=== PATIENT | male | born 1960 | race Caucasian/White ===

== ENCOUNTER 2018-03-10 01:13 | Inpatient (IN) | payer MEDICARE, MEDICAID ==
[2018-03-10] VITALS (10 sets, daily range): BP systolic 93–113; BP diastolic 51–70
[~2018-03-10] VITALS: Ht 177.8 cm; Wt 81.8 kg
[2018-03-10] MEDS ORDERED: normal saline 1000ML IV soln IVB ONE ×2 (01:15)
[2018-03-10 01:26] LABS: ISTAT CREATININE 1.5 mg/dL (0.8-1.3); ISTAT HGB 12.9 g/dl (14.0-18.0); ISTAT IONIZED CALCIUM 1.21 mmol/L (1.03-1.32); ISTAT K 4.5 mmol/L (3.5-5.1); POC BUN/CREATININE RATIO 33.3 (5.4-32.0)
[2018-03-10 01:28] LABS: BASOPHILS # (AUTO) 0.2 X10'3 (0-0.2); BASOPHILS % (AUTO) 1.4 % (0-1); EOSINOPHILS % (AUTO) 0.4 % (0-6); HEMATOCRIT 37.3 % (42.0-52.0); HEMOGLOBIN 12.4 g/dl (14.0-17.9); LYMPHOCYTES # (AUTO) 1.7 X10'3 (1.1-4.8); MEAN CORPUSCULAR HEMOGLOBIN 30.3 PG (27.0-31.0); MEAN CORPUSCULAR HGB CONC 33.2 % (33.0-36.5); MEAN CORPUSCULAR VOLUME 91.4 FL (78-98); MEAN PLATELET VOLUME 9.8 FL (7.4-10.4); MONOCYTES # (AUTO) 0.4 X10'3 (0-0.9); MONOCYTES % (AUTO) 3.3 % (2-12); NEUTROPHILS # (AUTO) 8.5 X10'3 (1.8-7.7); NEUTROPHILS % (AUTO) 78.9 % (42-75); PLATELET COUNT 371 X10'3 (140-440); RED BLOOD COUNT 4.08 X10'6 (4.70-6.10); RED CELL DISTRIBUTION WIDTH 13.2 % (11.5-14.5); WHITE BLOOD COUNT 10.8 X10'3 (4.5-11.0)
[2018-03-10] MEDS ORDERED: tranexamic acid inj. 810 MG in normal saline 100ml IV soln 91.9 ML IV ONE (01:45)
[2018-03-10 01:58] LABS: ALANINE AMINOTRANSFERASE 30 U/L (12-78); ALBUMIN 3.6 G/DL (3.4-5.0); ALBUMIN/GLOBULIN RATIO 0.8 (1.1-1.5); ALKALINE PHOSPHATASE 83 IU/L (46-116); ANION GAP 15 (8-16); ASPARTATE AMINO TRANSFERASE 18 U/L (10-37); BILIRUBIN,TOTAL 0.6 MG/DL (0.1-1.0); BLOOD UREA NITROGEN 62 MG/DL (7-18); BUN/CREATININE RATIO 32.8 (5.4-32.0); CALCIUM 9.8 MG/DL (8.5-10.1); CHLORIDE 100 MMOL/L (99-107); CREATININE 1.89 MG/DL (0.60-1.10); GLUCOSE 357 MG/DL (70-104); MAGNESIUM 1.9 MG/DL (1.5-2.4); POTASSIUM 4.5 MMOL/L (3.5-5.1); SODIUM 139 MMOL/L (135-145); TOTAL CARBON DIOXIDE 24.4 MMOL/L (24-32); TOTAL PROTEIN 7.9 G/DL (6.4-8.2); eGFR 37 ML/MIN
[2018-03-10 02:01] LABS: PROTHROMBIN TIME 10.1 SECONDS (9.0-12.0)
[2018-03-10 02:02] LABS: PARTIAL THROMBOPLASTIN TIME 22 SECONDS (22-32)
[2018-03-10 03:21] LABS: TOTAL CELLS COUNTED 100
[2018-03-10 03:22] LABS: PLATELET ESTIMATE NORMAL
[2018-03-10 03:34] LABS: HEMATOCRIT 32.7 % (42.0-52.0); MEAN CORPUSCULAR HEMOGLOBIN 30.2 PG (27.0-31.0); MEAN CORPUSCULAR HGB CONC 33.5 % (33.0-36.5); MEAN CORPUSCULAR VOLUME 89.9 FL (78-98); MEAN PLATELET VOLUME 9.7 FL (7.4-10.4); PLATELET COUNT 311 X10'3 (140-440); RED BLOOD COUNT 3.64 X10'6 (4.70-6.10); WHITE BLOOD COUNT 6.1 X10'3 (4.5-11.0)
[2018-03-10] MEDS ORDERED: INSU100I29 SQ (04:04)
[2018-03-10] MEDS ORDERED: ATR0.5NEB IH (04:04)
[2018-03-10] MEDS ORDERED: INSU100C4 SQ (04:04)
[2018-03-10] MEDS ORDERED: INSU100I29 (04:04)
[2018-03-10] MEDS ORDERED: PARO-62 PO (04:04)
[2018-03-10] MEDS ORDERED: GLUC1KIT IM (04:04)
[2018-03-10] MEDS ORDERED: METF500T PO (04:04)
[2018-03-10] MEDS ORDERED: FURO-150 PO (04:04)
[2018-03-10] MEDS ORDERED: LOSA25TA96 PO (04:04)
[2018-03-10] MEDS ORDERED: SIMV10TA2 PO (04:04)
[2018-03-10] MEDS ORDERED: CETI10TA15 PO (04:04)
[2018-03-10] MEDS ORDERED: MULT-38 PO (04:04)
[2018-03-10] MEDS ORDERED: diphenhydrAMINE 25mg capsule PO PRN (04:05)
[2018-03-10] MEDS ORDERED: bisacodyl 10mg suppository rectal RC PRN (04:05)
[2018-03-10] MEDS ORDERED: acetaminophen 650mg rectal suppository RC PRN (04:05)
[2018-03-10] MEDS ORDERED: mag hydrox/Alum hydrox/simeth 30ml oral suspension PO PRN (04:05)
[2018-03-10] MEDS ORDERED: diphenhydrAMINE 50 mg/ml inj IV PRN (04:05)
[2018-03-10] MEDS ORDERED: ondansetron/PF 4mg/2ml inj IV PRN (04:05)
[2018-03-10] MEDS ORDERED: magnesium hydroxide 30ml (MOM) UD suspension PO PRN (04:05)
[2018-03-10] MEDS ORDERED: HYDROmorphone 1 mg/ml syringe IV PRN (04:05)
[2018-03-10] MEDS ORDERED: acetaminophen 325mg tablet PO PRN (04:05)
[2018-03-10] MEDS ORDERED: morphine 2 MG/ML inj. syringe IV PRN (04:05)
[2018-03-10] MEDS ORDERED: HYDROcodone/acetaminophen 5mg/325mg tablet PO PRN (04:05)
[2018-03-10] MEDS ORDERED: ibuprofen tablet 400 MG TABLET PO ONE (04:10)
[2018-03-10] MEDS ORDERED: MESSAGE TO PHARMACY PO ONE (04:15)
[2018-03-10] MEDS ORDERED: glucagon, human recombinant 1mg kit SUBCUT PRN (04:15)
[2018-03-10] MEDS ORDERED: dextrose 50%-water 50ml dispensing syringe IV PRN (04:15)
[2018-03-10] MEDS ORDERED: dextrose ORAL solution 15 GM/59 ML bottle PO PRN ×2 (04:15)
[2018-03-10 05:10] LABS: ABG BASE EXCESS -1.4 mmol/L (-2.0-3.0); ABG HCO3 23.1 mmol/L (22.0-26.0); ABG OXYGEN SATURATION 98.5 % (95-98); ABG PCO2 (T) 36.9 mmHg (35.0-48.0); ABG PH (T) 7.412 (7.350-7.450); ABG PO2 (T) 114.6 mmHg (83-108); FCOHb 0.2 % (0.5-1.5); FMetHb 0.3 % (0.3-1.12); MINUTE VOLUME 20 L/min; PATIENT TEMPERATURE 36.4; RESPIRATORY RATE 14 b/min; RESPIRATORY RATE (OBSERVED) 30 b/min; TOTAL HEMOGLOBIN 11.7 G/dl (14.0-18.0)
[2018-03-10] MEDS: normal saline 1000ml 1,000 ML IV SCH ×2 (05:30→15:04)
[2018-03-10 05:59] LABS: LIPASE 120 U/L (73-393)
[2018-03-10 06:13] LABS: OSMOLALITY 331 MOSM/K (280-300)
[2018-03-10] MEDS ORDERED: mineral oil 133ml enema RC PRN (06:45)
[2018-03-10] MEDS ORDERED: sodium polystyrene sulfonate ENEMA 30gm/120ml RC ONE (06:45)
[2018-03-10 07:17] LABS: HEMOGLOBIN A1C 10.5 % (4.5-6.2)
[2018-03-10] MEDS: docusate sod 100mg capsule PO SCH ×2 (08:00→20:00)
[2018-03-10] MEDS: pantoprazole 40 MG vial IV SCH ×2 (08:01→21:32)
[2018-03-10] MEDS: clindamycin 600mg/D5W 50ml 50 ML IV SCH ×2 (08:02→15:03)
[2018-03-10] MEDS: levoFLOXACIN-Levaquin 500mg/D5 100 ML IV SCH (08:03)
[2018-03-10] MEDS ORDERED: albuterol 2.5 MG/3 ML nebule NEB PRN (20:30)
[2018-03-10] MEDS ORDERED: temazepam 15mg capsule PO PRN (21:00)
[2018-03-10] MEDS ORDERED: dextrose 5%-normal saline 1,000 ML IV SCH (21:30)
[2018-03-10] MEDS: dextrose 50%-water 50ml dispensing syringe IV PRN (21:32)
[2018-03-11 02:45] VITALS: BP 110/59
[2018-03-11 06:49] LABS: BASOPHILS % (AUTO) 0 % (0-1); EOSINOPHILS % (AUTO) 0.1 % (0-6); HEMATOCRIT 29.3 % (42.0-52.0); HEMOGLOBIN 9.6 g/dl (14.0-17.9); LYMPHOCYTES # (AUTO) 1.2 X10'3 (1.1-4.8); LYMPHOCYTES % (AUTO) 11.3 % (21-51); MEAN CORPUSCULAR HEMOGLOBIN 29.9 PG (27.0-31.0); MEAN CORPUSCULAR HGB CONC 32.9 % (33.0-36.5); MEAN CORPUSCULAR VOLUME 90.8 FL (78-98); MEAN PLATELET VOLUME 9.4 FL (7.4-10.4); MONOCYTES # (AUTO) 0.5 X10'3 (0-0.9); MONOCYTES % (AUTO) 4.3 % (2-12); NEUTROPHILS # (AUTO) 8.8 X10'3 (1.8-7.7); NEUTROPHILS % (AUTO) 84.3 % (42-75); PLATELET COUNT 245 X10'3 (140-440); RED BLOOD COUNT 3.22 X10'6 (4.70-6.10); RED CELL DISTRIBUTION WIDTH 13.9 % (11.5-14.5); WHITE BLOOD COUNT 10.4 X10'3 (4.5-11.0)
[2018-03-11 07:14] LABS: ALANINE AMINOTRANSFERASE 25 U/L (12-78); ALBUMIN 2.5 G/DL (3.4-5.0); ALBUMIN/GLOBULIN RATIO 0.7 (1.1-1.5); ALKALINE PHOSPHATASE 57 IU/L (46-116); ANION GAP 8 (8-16); ASPARTATE AMINO TRANSFERASE 38 U/L (10-37); BILIRUBIN,TOTAL 0.4 MG/DL (0.1-1.0); BLOOD UREA NITROGEN 49 MG/DL (7-18); BUN/CREATININE RATIO 36.6 (5.4-32.0); CALCIUM 8.8 MG/DL (8.5-10.1); CHLORIDE 114 MMOL/L (99-107); CHOL/HDL RATIO 2.7 (0.00-4.99); CHOLESTEROL 73 MG/DL (0-200); CREATININE 1.34 MG/DL (0.60-1.10); GLUCOSE 232 MG/DL (70-104); HDL CHOLESTEROL 27 MG/DL (35-60); LDL CHOLESTEROL 27 MG/DL (50-100); POTASSIUM 3.3 MMOL/L (3.5-5.1); SODIUM 150 MMOL/L (135-145); TOTAL CARBON DIOXIDE 28.4 MMOL/L (24-32); TOTAL PROTEIN 6.2 G/DL (6.4-8.2); TRIGLYCERIDES 85 MG/DL (20-135); eGFR 55 ML/MIN
[2018-03-11] MEDS: clindamycin 600mg/D5W 50ml 50 ML IV SCH ×3 (08:00→16:08)
[2018-03-11] MEDS ORDERED: dextrose 5%-water 1,000 ML IV SCH (09:10)
[2018-03-11] MEDS: levoFLOXACIN-Levaquin 500mg/D5 100 ML IV SCH (10:21)
[2018-03-11] MEDS: docusate sod 100mg capsule PO SCH ×2 (10:22→20:00)
[2018-03-11] MEDS: pantoprazole 40 MG vial IV SCH ×2 (10:22→20:26)
[2018-03-11] MEDS: insulin Lispro (HumaLOG) vial - multi-dose SQ SCH (12:30)
[2018-03-11 15:07] LABS: ALBUMIN 2.5 G/DL (3.4-5.0); ANION GAP 9 (8-16); BLOOD UREA NITROGEN 41 MG/DL (7-18); BUN/CREATININE RATIO 33.9 (5.4-32.0); CALCIUM 9.2 MG/DL (8.5-10.1); CHLORIDE 116 MMOL/L (99-107); CREATININE 1.21 MG/DL (0.60-1.10); GLUCOSE 155 MG/DL (70-104); POTASSIUM 3.1 MMOL/L (3.5-5.1); SODIUM 153 MMOL/L (135-145); TOTAL CARBON DIOXIDE 27.8 MMOL/L (24-32); eGFR 62 ML/MIN
[2018-03-11] MEDS ORDERED: potassium Cl 40MEQ/NS 500ml 500 ML IV PRN ×2 (15:35)
[2018-03-11] MEDS ORDERED: magnesium 4gm in 100ml NS 100 ML IV PRN (15:35)
[2018-03-11] MEDS ORDERED: potassium Cl 20 mEq SR tablet PO PRN ×2 (15:35)
[2018-03-11] MEDS ORDERED: magnesium 1gm/100ml D5W IVPB 100 ML IV PRN (15:35)
[2018-03-11] MEDS ORDERED: magnesium Cl slow-release 64mg tablet PO PRN (15:35)
[2018-03-11 15:56] LABS: MAGNESIUM 2.1 MG/DL (1.5-2.4)
[2018-03-11] MEDS: lactulose 20gm/30ml cup NG SCH (16:08)
[2018-03-11 18:33] LABS: POTASSIUM 3.1 MMOL/L (3.5-5.1)
[2018-03-11 19:20] VITALS: BP 124/79
[2018-03-11] MEDS: dextrose 5%-water 1,000 ML IV SCH (20:15)
[2018-03-12] VITALS: BP 124/75
[2018-03-12] MEDS: lactulose 20gm/30ml cup NG SCH ×2 (00:23→07:36)
[2018-03-12] MEDS: clindamycin 600mg/D5W 50ml 50 ML IV SCH ×3 (00:23→16:52)
[2018-03-12] MEDS: insulin Lispro (HumaLOG) vial - multi-dose SQ SCH ×4 (01:23→21:52)
[2018-03-12] MEDS: dextrose 5%-water 1,000 ML IV SCH ×4 (04:40→23:16)
[2018-03-12 05:42] LABS: BASOPHILS % (AUTO) 0.2 % (0-1); EOSINOPHILS % (AUTO) 0.4 % (0-6); HEMATOCRIT 30.8 % (42.0-52.0); HEMOGLOBIN 10.2 g/dl (14.0-17.9); LYMPHOCYTES # (AUTO) 1.5 X10'3 (1.1-4.8); LYMPHOCYTES % (AUTO) 15.4 % (21-51); MEAN CORPUSCULAR HEMOGLOBIN 30.3 PG (27.0-31.0); MEAN CORPUSCULAR HGB CONC 33.1 % (33.0-36.5); MEAN CORPUSCULAR VOLUME 91.5 FL (78-98); MEAN PLATELET VOLUME 9.6 FL (7.4-10.4); MONOCYTES # (AUTO) 0.6 X10'3 (0-0.9); MONOCYTES % (AUTO) 6.2 % (2-12); NEUTROPHILS # (AUTO) 7.7 X10'3 (1.8-7.7); NEUTROPHILS % (AUTO) 77.8 % (42-75); PLATELET COUNT 267 X10'3 (140-440); RED BLOOD COUNT 3.37 X10'6 (4.70-6.10); RED CELL DISTRIBUTION WIDTH 14.2 % (11.5-14.5); WHITE BLOOD COUNT 9.9 X10'3 (4.5-11.0)
[2018-03-12 06:00] LABS: ALANINE AMINOTRANSFERASE 29 U/L (12-78); ALBUMIN 2.4 G/DL (3.4-5.0); ALBUMIN/GLOBULIN RATIO 0.6 (1.1-1.5); ALKALINE PHOSPHATASE 69 IU/L (46-116); ANION GAP 10 (8-16); ASPARTATE AMINO TRANSFERASE 39 U/L (10-37); BILIRUBIN,TOTAL 0.5 MG/DL (0.1-1.0); BLOOD UREA NITROGEN 31 MG/DL (7-18); BUN/CREATININE RATIO 25.2 (5.4-32.0); CALCIUM 8.8 MG/DL (8.5-10.1); CHLORIDE 115 MMOL/L (99-107); CREATININE 1.23 MG/DL (0.60-1.10); GLUCOSE 338 MG/DL (70-104); POTASSIUM 3.7 MMOL/L (3.5-5.1); SODIUM 150 MMOL/L (135-145); TOTAL CARBON DIOXIDE 25.3 MMOL/L (24-32); TOTAL PROTEIN 6.4 G/DL (6.4-8.2); eGFR 61 ML/MIN
[2018-03-12] MEDS: pantoprazole 40 MG vial IV SCH ×2 (07:36→21:39)
[2018-03-12] MEDS: docusate sod 100mg capsule PO SCH ×2 (07:48→20:00)
[2018-03-12] MEDS: levoFLOXACIN-Levaquin 500mg/D5 100 ML IV SCH (09:05)
[2018-03-12 09:46] VITALS: BP 119/62
[2018-03-12] MEDS: mineral oil 133ml enema RC SCH ×3 (12:49→21:43)
[2018-03-12 14:28] VITALS: BP 120/70
[2018-03-12 20:00] VITALS: BP 113/73
[2018-03-13] VITALS: BP 109/67
[2018-03-13] MEDS: clindamycin 600mg/D5W 50ml 50 ML IV SCH ×3 (00:42→15:49)
[2018-03-13 06:04] LABS: BASOPHILS % (AUTO) 0.2 % (0-1); EOSINOPHILS # (AUTO) 0.3 X10'3 (0-0.9); EOSINOPHILS % (AUTO) 2.9 % (0-6); HEMATOCRIT 32.6 % (42.0-52.0); HEMOGLOBIN 10.8 g/dl (14.0-17.9); LYMPHOCYTES # (AUTO) 1.5 X10'3 (1.1-4.8); LYMPHOCYTES % (AUTO) 15.1 % (21-51); MEAN CORPUSCULAR HEMOGLOBIN 30.2 PG (27.0-31.0); MEAN CORPUSCULAR HGB CONC 33.1 % (33.0-36.5); MEAN CORPUSCULAR VOLUME 91.3 FL (78-98); MEAN PLATELET VOLUME 9.8 FL (7.4-10.4); MONOCYTES # (AUTO) 0.5 X10'3 (0-0.9); MONOCYTES % (AUTO) 5.2 % (2-12); NEUTROPHILS # (AUTO) 7.6 X10'3 (1.8-7.7); NEUTROPHILS % (AUTO) 76.6 % (42-75); PLATELET COUNT 260 X10'3 (140-440); RED BLOOD COUNT 3.57 X10'6 (4.70-6.10); RED CELL DISTRIBUTION WIDTH 13.8 % (11.5-14.5); WHITE BLOOD COUNT 9.9 X10'3 (4.5-11.0)
[2018-03-13 06:29] LABS: ALANINE AMINOTRANSFERASE 29 U/L (12-78); ALBUMIN 2.4 G/DL (3.4-5.0); ALBUMIN/GLOBULIN RATIO 0.6 (1.1-1.5); ALKALINE PHOSPHATASE 73 IU/L (46-116); ANION GAP 15 (8-16); ASPARTATE AMINO TRANSFERASE 27 U/L (10-37); BILIRUBIN,TOTAL 0.5 MG/DL (0.1-1.0); BLOOD UREA NITROGEN 24 MG/DL (7-18); BUN/CREATININE RATIO 19.8 (5.4-32.0); CALCIUM 8.4 MG/DL (8.5-10.1); CHLORIDE 108 MMOL/L (99-107); CREATININE 1.21 MG/DL (0.60-1.10); MAGNESIUM 1.8 MG/DL (1.5-2.4); POTASSIUM 3.8 MMOL/L (3.5-5.1); SODIUM 146 MMOL/L (135-145); TOTAL CARBON DIOXIDE 23.5 MMOL/L (24-32); TOTAL PROTEIN 6.3 G/DL (6.4-8.2); eGFR 62 ML/MIN
[2018-03-13 06:57] LABS: GLUCOSE 506 MG/DL (70-104)
[2018-03-13 07:28] VITALS: BP 109/71
[2018-03-13] MEDS: insulin Lispro (HumaLOG) vial - multi-dose SQ SCH ×2 (07:42→13:44)
[2018-03-13] MEDS: pantoprazole 40 MG vial IV SCH ×2 (07:43→22:13)
[2018-03-13] MEDS: docusate sod 100mg capsule PO SCH ×2 (08:00→22:16)
[2018-03-13] MEDS: levoFLOXACIN-Levaquin 500mg/D5 100 ML IV SCH (08:58)
[2018-03-13] MEDS: lactulose 20gm/30ml cup PO SCH ×3 (10:30→22:15)
[2018-03-13] MEDS: Potassium Cl inj 20 MEQ in normal saline 1000ml 990 ML IV SCH ×2 (10:36→22:10)
[2018-03-13 11:29] VITALS: BP 117/72
[2018-03-13 14:23] LABS: ALBUMIN 2.3 G/DL (3.4-5.0); ANION GAP 8 (8-16); BLOOD UREA NITROGEN 24 MG/DL (7-18); BUN/CREATININE RATIO 17.8 (5.4-32.0); CALCIUM 8.7 MG/DL (8.5-10.1); CHLORIDE 112 MMOL/L (99-107); CREATININE 1.35 MG/DL (0.60-1.10); GLUCOSE 196 MG/DL (70-104); POTASSIUM 3.6 MMOL/L (3.5-5.1); SODIUM 147 MMOL/L (135-145); TOTAL CARBON DIOXIDE 26.7 MMOL/L (24-32); eGFR 55 ML/MIN
[2018-03-13 20:00] VITALS: BP 96/52
[2018-03-13] MEDS: insulin glargine (Lantus) pen - multi-dose SQ SCH (22:22)
[2018-03-14] VITALS: BP 110/65
[2018-03-14] MEDS: clindamycin 600mg/D5W 50ml 50 ML IV SCH ×3 (00:25→16:42)
[2018-03-14] MEDS: lactulose 20gm/30ml cup PO SCH ×2 (02:00→07:36)
[2018-03-14 05:58] LABS: BASOPHILS % (AUTO) 0.3 % (0-1); EOSINOPHILS # (AUTO) 0.4 X10'3 (0-0.9); EOSINOPHILS % (AUTO) 4.4 % (0-6); HEMATOCRIT 32.1 % (42.0-52.0); HEMOGLOBIN 10.6 g/dl (14.0-17.9); LYMPHOCYTES # (AUTO) 1.9 X10'3 (1.1-4.8); LYMPHOCYTES % (AUTO) 20.1 % (21-51); MEAN CORPUSCULAR HEMOGLOBIN 30.4 PG (27.0-31.0); MEAN CORPUSCULAR HGB CONC 33.1 % (33.0-36.5); MEAN CORPUSCULAR VOLUME 91.9 FL (78-98); MEAN PLATELET VOLUME 9.8 FL (7.4-10.4); MONOCYTES # (AUTO) 0.7 X10'3 (0-0.9); NEUTROPHILS # (AUTO) 6.4 X10'3 (1.8-7.7); NEUTROPHILS % (AUTO) 68.2 % (42-75); PLATELET COUNT 251 X10'3 (140-440); RED BLOOD COUNT 3.49 X10'6 (4.70-6.10); RED CELL DISTRIBUTION WIDTH 13.7 % (11.5-14.5); WHITE BLOOD COUNT 9.4 X10'3 (4.5-11.0)
[2018-03-14] MEDS: Potassium Cl inj 20 MEQ in normal saline 1000ml 990 ML IV SCH ×2 (06:00→16:42)
[2018-03-14 06:33] LABS: ALANINE AMINOTRANSFERASE 28 U/L (12-78); ALBUMIN 2.2 G/DL (3.4-5.0); ALBUMIN/GLOBULIN RATIO 0.6 (1.1-1.5); ALKALINE PHOSPHATASE 67 IU/L (46-116); ANION GAP 11 (8-16); ASPARTATE AMINO TRANSFERASE 23 U/L (10-37); BILIRUBIN,TOTAL 0.5 MG/DL (0.1-1.0); BLOOD UREA NITROGEN 24 MG/DL (7-18); BUN/CREATININE RATIO 18.5 (5.4-32.0); CALCIUM 8.1 MG/DL (8.5-10.1); CHLORIDE 108 MMOL/L (99-107); MAGNESIUM 1.8 MG/DL (1.5-2.4); POTASSIUM 4.1 MMOL/L (3.5-5.1); SODIUM 142 MMOL/L (135-145); TOTAL CARBON DIOXIDE 22.7 MMOL/L (24-32); TOTAL PROTEIN 5.9 G/DL (6.4-8.2); eGFR 57 ML/MIN
[2018-03-14 06:58] LABS: GLUCOSE 467 MG/DL (70-104)
[2018-03-14] MEDS: docusate sod 100mg capsule PO SCH ×2 (07:36→20:00)
[2018-03-14] MEDS: pantoprazole 40 MG vial IV SCH ×2 (07:36→20:00)
[2018-03-14] MEDS: insulin Lispro (HumaLOG) vial - multi-dose SQ SCH ×4 (07:39→18:58)
[2018-03-14 08:00] VITALS: BP 128/71
[2018-03-14] MEDS: levoFLOXACIN-Levaquin 500mg/D5 100 ML IV SCH (09:06)
[2018-03-14 12:00] VITALS: BP 102/60
[2018-03-14 19:00] VITALS: BP 101/54
[2018-03-14] MEDS: ipratropium/albuterol 3ml nebule NEB SCH (21:30)
[2018-03-14] MEDS: insulin glargine (Lantus) pen - multi-dose SQ SCH (21:34)
[2018-03-15] VITALS: BP 106/59
[2018-03-15] MEDS: clindamycin 600mg/D5W 50ml 50 ML IV SCH ×4 (00:13→23:55)
[2018-03-15] MEDS: Potassium Cl inj 20 MEQ in normal saline 1000ml 990 ML IV SCH ×3 (02:00→21:09)
[2018-03-15 06:04] LABS: BASOPHILS % (AUTO) 0.1 % (0-1); EOSINOPHILS # (AUTO) 0.6 X10'3 (0-0.9); EOSINOPHILS % (AUTO) 6.3 % (0-6); HEMATOCRIT 29.7 % (42.0-52.0); HEMOGLOBIN 9.7 g/dl (14.0-17.9); LYMPHOCYTES # (AUTO) 1.9 X10'3 (1.1-4.8); LYMPHOCYTES % (AUTO) 21.5 % (21-51); MEAN CORPUSCULAR HEMOGLOBIN 29.7 PG (27.0-31.0); MEAN CORPUSCULAR HGB CONC 32.7 % (33.0-36.5); MEAN CORPUSCULAR VOLUME 90.6 FL (78-98); MEAN PLATELET VOLUME 9.9 FL (7.4-10.4); MONOCYTES # (AUTO) 0.5 X10'3 (0-0.9); MONOCYTES % (AUTO) 5.4 % (2-12); NEUTROPHILS % (AUTO) 66.7 % (42-75); PLATELET COUNT 248 X10'3 (140-440); RED BLOOD COUNT 3.28 X10'6 (4.70-6.10); RED CELL DISTRIBUTION WIDTH 13.4 % (11.5-14.5)
[2018-03-15 06:21] LABS: ALANINE AMINOTRANSFERASE 27 U/L (12-78); ALBUMIN 2.1 G/DL (3.4-5.0); ALBUMIN/GLOBULIN RATIO 0.6 (1.1-1.5); ALKALINE PHOSPHATASE 61 IU/L (46-116); ANION GAP 8 (8-16); ASPARTATE AMINO TRANSFERASE 22 U/L (10-37); BILIRUBIN,TOTAL 0.3 MG/DL (0.1-1.0); BLOOD UREA NITROGEN 19 MG/DL (7-18); BUN/CREATININE RATIO 18.4 (5.4-32.0); CALCIUM 8.1 MG/DL (8.5-10.1); CHLORIDE 108 MMOL/L (99-107); CREATININE 1.03 MG/DL (0.60-1.10); GLUCOSE 334 MG/DL (70-104); MAGNESIUM 1.8 MG/DL (1.5-2.4); POTASSIUM 3.9 MMOL/L (3.5-5.1); SODIUM 142 MMOL/L (135-145); TOTAL CARBON DIOXIDE 25.7 MMOL/L (24-32); TOTAL PROTEIN 5.6 G/DL (6.4-8.2); eGFR 75 ML/MIN
[2018-03-15] MEDS: budesonide 0.5mg/2ml UD nebule IH SCH ×2 (07:33→20:00)
[2018-03-15] MEDS: ipratropium/albuterol 3ml nebule NEB SCH ×3 (07:35→20:59)
[2018-03-15 08:00] VITALS: BP 135/73
[2018-03-15] MEDS: docusate sod 100mg capsule PO SCH ×2 (08:47→20:18)
[2018-03-15] MEDS: pantoprazole 40 MG vial IV SCH ×2 (08:47→20:18)
[2018-03-15] MEDS: insulin Lispro (HumaLOG) vial - multi-dose SQ SCH ×2 (08:53→13:03)
[2018-03-15] MEDS: levoFLOXACIN-Levaquin 500mg/D5 100 ML IV SCH (09:36)
[2018-03-15 12:00] VITALS: BP 125/68
[2018-03-15] MEDS ORDERED: lactulose 20gm/30ml cup PO SCH (12:55)
[2018-03-15] MEDS: dextrose 50%-water 50ml dispensing syringe IV PRN (17:10)
[2018-03-15 19:45] VITALS: BP 129/74
[2018-03-15] MEDS: insulin glargine (Lantus) pen - multi-dose SQ SCH (21:00)
[2018-03-15] MEDS: diatr meglu/diatrizoate 30ml oral sol.-(3 dose) bottle PO SCH (21:08)
[2018-03-16 00:45] VITALS: BP 128/78
[2018-03-16] MEDS: diatr meglu/diatrizoate 30ml oral sol.-(3 dose) bottle PO SCH ×2 (07:23→10:31)
[2018-03-16] MEDS: pantoprazole 40 MG vial IV SCH ×2 (07:24→19:22)
[2018-03-16] MEDS: Potassium Cl inj 20 MEQ in normal saline 1000ml 990 ML IV SCH ×2 (07:24→19:22)
[2018-03-16] MEDS: docusate sod 100mg capsule PO SCH ×2 (07:24→19:22)
[2018-03-16] MEDS: clindamycin 600mg/D5W 50ml 50 ML IV SCH ×2 (07:24→16:16)
[2018-03-16] MEDS: ipratropium/albuterol 3ml nebule NEB SCH ×3 (07:58→21:11)
[2018-03-16] MEDS: budesonide 0.5mg/2ml UD nebule IH SCH ×2 (07:58→20:00)
[2018-03-16 08:00] VITALS: BP 136/79
[2018-03-16] MEDS: levoFLOXACIN-Levaquin 500mg/D5 100 ML IV SCH (09:07)
[2018-03-16] MEDS: insulin Lispro (HumaLOG) vial - multi-dose SQ SCH ×3 (09:08→18:53)
[2018-03-16] MEDS ORDERED: magnesium 2GM in 50ml NS 50 ML IV PRN (09:30)
[2018-03-16] MEDS ORDERED: magnesium 4gm in 100ml NS 100 ML IV PRN (09:35)
[2018-03-16 11:00] VITALS: BP 119/75
[2018-03-16 19:50] VITALS: BP 134/71
[2018-03-16] MEDS: insulin glargine (Lantus) pen - multi-dose SQ SCH (20:49)
[2018-03-17] MEDS: clindamycin 600mg/D5W 50ml 50 ML IV SCH
[2018-03-17] MEDS ORDERED: clindamycin 150mg capsule PO ONE (00:40)
[2018-03-17] MEDS: Potassium Cl inj 20 MEQ in normal saline 1000ml 990 ML IV SCH ×2 (04:00→13:53)
[2018-03-17] MEDS: ipratropium/albuterol 3ml nebule NEB SCH (07:50)
[2018-03-17] MEDS: budesonide 0.5mg/2ml UD nebule IH SCH (07:50)
[2018-03-17] MEDS: levoFLOXACIN-Levaquin 500mg/D5 100 ML IV SCH (08:00)
[2018-03-17] MEDS: pantoprazole 40 MG vial IV SCH (08:00)
[2018-03-17] MEDS: docusate sod 100mg capsule PO SCH ×2 (08:00→09:37)
[2018-03-17] MEDS: insulin Lispro (HumaLOG) vial - multi-dose SQ SCH ×2 (09:34→14:01)
== END 2018-03-17 14:22 | DRG 871 ==
LOC: ER 01:14 → ED HOLD 04:04 → PCU 3S 05:43 → SUR 3N 03-11 14:00
PROVIDERS: ADMIT Family Medicine; ATTEND Family Medicine
PROC: 5A09357 Assistance with Respiratory Ventilation, Less than 24 Consecutive Hours, Continuous Positive Airway Pressure (ICD-10-PCS; principal; 2018-03-10)
PROC: 0D9670Z Drainage of Stomach with Drainage Device, Via Natural or Artificial Opening (ICD-10-PCS; 2018-03-10)
DX: A41.9 Sepsis, unspecified organism (principal); J69.0 Pneumonitis due to inhalation of food and vomit; J96.01 Acute respiratory failure with hypoxia; E87.2 Acidosis; I69.351 Hemiplegia and hemiparesis following cerebral infarction affecting right dominant side; E87.0 Hyperosmolality and hypernatremia; D64.9 Anemia, unspecified; F01.50 Vascular dementia, unspecified severity, without behavioral disturbance, psychotic disturbance, mood disturbance, and anxiety; E11.65 Type 2 diabetes mellitus with hyperglycemia; E78.00 Pure hypercholesterolemia, unspecified; E78.5 Hyperlipidemia, unspecified; I10 Essential (primary) hypertension; I25.10 Atherosclerotic heart disease of native coronary artery without angina pectoris; K52.89 Other specified noninfective gastroenteritis and colitis; K56.41 Fecal impaction; Z66 Do not resuscitate; F32.9 Major depressive disorder, single episode, unspecified; N28.9 Disorder of kidney and ureter, unspecified; Z79.4 Long term (current) use of insulin; Z79.899 Other long term (current) drug therapy; Z79.84 Long term (current) use of oral hypoglycemic drugs
CPT/HCPCS: 36415; 36600; 70450; 71045; 71250; 74018; 74176; 80047; 80048; 80053; 80061; 82803; 82948; 83036; 83605; 83690; 83735; 83880; 83930; 84100; 84132; 84145; 84443; 84484; 85018; 85025; 85027; 85610; 85730; 87040; 87070; 92616; 93005; 93306; 94640; 94660; 94667; 94668; 94760; 96365; 99285; C9113; G0378; J1815; J1956; J2270; J3480; J3490; J7030; J7042; J7070; J7626; Q9963